=== PATIENT | female | born 1960 | race Caucasian/White ===

== ENCOUNTER 2018-12-30 17:44 | Emergency (ER) | payer SELFPAY ==
[~2018-12-30] VITALS: Ht 152.4 cm; Wt 76.4 kg
[2018-12-30] MEDS ORDERED: PENI500T2 PO (19:42)
[2018-12-30] MEDS ORDERED: HYDROcodone/acetaminophen 10/325mg tab PO ONE (19:50)
[2018-12-30 19:54] VITALS: BP 131/80
== END 2018-12-30 19:51 | disposition home or self-care (01) ==
LOC: ER 17:46
DX: K08.89 Other specified disorders of teeth and supporting structures (principal); H00.015 Hordeolum externum left lower eyelid; Z88.1 Allergy status to other antibiotic agents; Z79.2 Long term (current) use of antibiotics
CPT/HCPCS: 99283

== ENCOUNTER 2019-02-08 09:32 | Emergency (ER) | payer SELFPAY ==
[~2019-02-08] VITALS: Ht 152.4 cm; Wt 72.4 kg
[2019-02-08 09:47] VITALS: BP 146/98
[2019-02-08] MEDS ORDERED: AMOX-580 PO (10:32)
[2019-02-08] MEDS ORDERED: IBUP-1984 PO (10:32)
[2019-02-08] MEDS ORDERED: HYDROcodone/acetaminophen 10/325mg tab PO ONE (10:35)
[2019-02-08] MEDS ORDERED: TRAM50TA2 PO (11:04)
[2019-02-08] MEDS ORDERED: NO HOME MEDS (18:04)
[2019-02-08] MEDS ORDERED: HYDR-4353 PO (20:14)
== END 2019-02-08 11:11 | disposition home or self-care (01) ==
LOC: ER 09:33
DX: K04.7 Periapical abscess without sinus (principal); K05.319 Chronic periodontitis, localized, unspecified severity; F17.200 Nicotine dependence, unspecified, uncomplicated; Z88.1 Allergy status to other antibiotic agents; Z79.899 Other long term (current) drug therapy
CPT/HCPCS: 41800; 99283

== ENCOUNTER 2019-02-08 16:36 | Emergency (ER) | payer SELFPAY ==
[~2019-02-08] VITALS: Ht 152.4 cm; Wt 70.8 kg
[~2019-02-08 16:36] MED LIST: AMOX-580 PO; IBUP-1984 PO; TRAM50TA2 PO
[2019-02-08] MEDS ORDERED: ondansetron/PF 4mg/2ml inj IV ONE (17:20)
[2019-02-08] MEDS ORDERED: normal saline 1000ML IV soln IVB ONE (17:20)
[2019-02-08] MEDS ORDERED: LORazepam 2 mg/ml vial IV ONE (17:20)
[2019-02-08] MEDS ORDERED: morphine 4 MG/ML inj SYRINge IV ONE (17:20)
[2019-02-08] MEDS ORDERED: piperacillin/tazo 4.5gm/100ml 100 ML IV ONE (17:30)
[2019-02-08 17:38] LABS: BASOPHILS # (AUTO) 0.1 X10'3 (0-0.2); BASOPHILS % (AUTO) 0.6 % (0-1); EOSINOPHILS # (AUTO) 0.1 X10'3 (0-0.9); EOSINOPHILS % (AUTO) 0.6 % (0-6); HEMATOCRIT 41.8 % (35.0-45.0); HEMOGLOBIN 14.4 g/dl (12.0-16.0); LYMPHOCYTES # (AUTO) 2.5 X10'3 (1.1-4.8); LYMPHOCYTES % (AUTO) 15.2 % (21-51); MEAN CORPUSCULAR HEMOGLOBIN 30.7 PG (27.0-31.0); MEAN CORPUSCULAR HGB CONC 34.4 g/dL (33.0-36.5); MEAN CORPUSCULAR VOLUME 89.3 FL (78-98); MEAN PLATELET VOLUME 7.8 FL (7.4-10.4); MONOCYTES # (AUTO) 1.4 X10'3 (0-0.9); MONOCYTES % (AUTO) 8.5 % (2-12); NEUTROPHILS # (AUTO) 12.4 X10'3 (1.8-7.7); NEUTROPHILS % (AUTO) 75.1 % (42-75); PLATELET COUNT 338 X10'3 (140-440); RED BLOOD COUNT 4.68 X10'6 (4.20-5.60); RED CELL DISTRIBUTION WIDTH 12.7 % (11.5-14.5); WHITE BLOOD COUNT 16.6 X10'3 (4.5-11.0)
[2019-02-08] MEDS ORDERED: iohexol 300mg/ml 100ml inj. ONE (17:48)
[2019-02-08 17:55] LABS: ALANINE AMINOTRANSFERASE 18 U/L (12-78); ALBUMIN 3.6 G/DL (3.4-5.0); ALBUMIN/GLOBULIN RATIO 0.9 (1.1-1.5); ALKALINE PHOSPHATASE 84 IU/L (46-116); ANION GAP 10 (8-16); ASPARTATE AMINO TRANSFERASE 11 U/L (10-37); BILIRUBIN,TOTAL 0.5 MG/DL (0.1-1.0); BLOOD UREA NITROGEN 8 MG/DL (7-18); BUN/CREATININE RATIO 15.7 (6.6-38.0); CALCIUM 8.8 MG/DL (8.5-10.1); CHLORIDE 106 MMOL/L (99-107); CREATININE 0.51 MG/DL (0.40-0.90); GLUCOSE 97 MG/DL (70-104); POTASSIUM 3.3 MMOL/L (3.5-5.1); SODIUM 140 MMOL/L (135-145); TOTAL CARBON DIOXIDE 24.2 MMOL/L (24-32); TOTAL PROTEIN 7.8 G/DL (6.4-8.2); eGFR > 90 ML/MIN
[2019-02-08] MEDS ORDERED: NO HOME MEDS (18:04)
[2019-02-08 18:10] VITALS: BP 135/88
--- NOTE | 2019-02-08 18:14 | NUR ---
PT TAKEN TO CT VIA W/C BY TECH.
--- NOTE | 2019-02-08 19:54 | NUR ---
Daughter at bedside Sharonda [phone].
[2019-02-08] MEDS ORDERED: HYDR-4353 PO (20:14)
== END 2019-02-08 20:45 | disposition home or self-care (01) ==
LOC: ER 16:37
DX: K12.2 Cellulitis and abscess of mouth (principal); F17.200 Nicotine dependence, unspecified, uncomplicated; R79.1 Abnormal coagulation profile; Z88.1 Allergy status to other antibiotic agents; Z79.899 Other long term (current) drug therapy
CPT/HCPCS: 36415; 70491; 80053; 85025; 85610; 96365; 96366; 96375; 99285; J2270; J2405; J2543; J7030; Q9967

== ENCOUNTER 2019-02-16 23:52 | Emergency (ER) | payer OTHER ==
[~2019-02-16] VITALS: Ht 152.4 cm; Wt 76.4 kg
[~2019-02-16 23:52] MED LIST changes: +NO HOME MEDS
[2019-02-16 23:57] VITALS: BP 123/79
--- NOTE | 2019-02-17 00:08 | NUR ---
PT IS 58 YO FEMALE C/O DOG BITE TO LEFT HAND APPROX 2330 WHILE WORKING [employer]IVATE [employer]ITY, DOG'S SHOT ARE UP TO DATE, NO BLEEDING TO HAND, PAIN IS 6/10, WAITING TO BE EVALUATED BY PROVIDER
[2019-02-17] MEDS ORDERED: AMOX-580 PO (01:15)
[2019-02-17] MEDS ORDERED: ketorolac trometh inj. 60 MG/2 ML VIAL IM ONE (01:25)
[2019-02-17] MEDS ORDERED: TETanus/Pertussis (Acell)/Diphther VAC/PF (Tdap-Adult) 0.5ml syringe IM ONE (01:25)
[2019-02-17] MEDS ORDERED: amox tr/potassium clavulanate 875/125mg TAB PO ONE (01:25)
[2019-02-17] MEDS ORDERED: bacitracin 15gm ointment TP ONE (01:25)
[2019-02-17] MEDS ORDERED: HYDROcodone/acetaminophen 5mg/325mg tablet PO ONE (01:45)
== END 2019-02-17 02:25 | disposition home or self-care (01) ==
LOC: ER 23:53
DX: S61.032A Puncture wound without foreign body of left thumb without damage to nail, initial encounter (principal); Z88.1 Allergy status to other antibiotic agents; Z79.899 Other long term (current) drug therapy; W54.0XXA Bitten by dog, initial encounter; Y93.89 Activity, other specified; Y92.89 Other specified places as the place of occurrence of the external cause; Y99.8 Other external cause status
CPT/HCPCS: 73130; 90471; 90715; 96372; 99284; J1885

== ENCOUNTER 2019-02-21 05:07 | Emergency (ER) | payer OTHER ==
[~2019-02-21] VITALS: Ht 152.4 cm; Wt 76.4 kg
[2019-02-21 05:11] VITALS: BP 149/93
== END 2019-02-21 05:30 | disposition home or self-care (01) ==
LOC: ER 05:08
DX: S61.452D Open bite of left hand, subsequent encounter (principal); Z88.1 Allergy status to other antibiotic agents; Z79.2 Long term (current) use of antibiotics; Z79.899 Other long term (current) drug therapy; W54.0XXD Bitten by dog, subsequent encounter
CPT/HCPCS: 99281

== ENCOUNTER 2020-01-28 19:35 | Emergency (ER) | payer SELFPAY ==
[~2020-01-28] VITALS: Ht 152.4 cm; Wt 75.0 kg
[~2020-01-28 19:35] MED LIST changes: -AMOX-580 PO; -IBUP-1984 PO; -TRAM50TA2 PO
[2020-01-28 19:38] VITALS: BP 132/85
[2020-01-28] MEDS ORDERED: CEPH500C5 PO (20:07)
[2020-01-28] MEDS ORDERED: SULF1TAB49 PO (20:07)
[2020-01-28] MEDS ORDERED: LACT1CAP65 PO (20:07)
== END 2020-01-28 20:15 | disposition home or self-care (01) ==
LOC: ER 19:36
DX: L02.31 Cutaneous abscess of buttock (principal); F17.200 Nicotine dependence, unspecified, uncomplicated; Z88.1 Allergy status to other antibiotic agents; Z79.899 Other long term (current) drug therapy
CPT/HCPCS: 99283

== ENCOUNTER 2020-10-29 09:34 | Emergency (ER) | payer OTHER ==
[~2020-10-29] VITALS: Ht 152.4 cm; Wt 72.7 kg
[~2020-10-29 09:34] MED LIST changes: +LACT1CAP65 PO
[2020-10-29] MEDS ORDERED: AMOX-422 PO (10:18)
[2020-10-29] MEDS ORDERED: ALBU6.7H9 INH (10:18)
[2020-10-29] MEDS ORDERED: PRED20TA PO (10:18)
[2020-10-29 10:31] VITALS: BP 125/98
== END 2020-10-29 11:32 | disposition home or self-care (01) ==
LOC: ER 09:35
DX: J20.9 Acute bronchitis, unspecified (principal); Z72.0 Tobacco use; Z88.1 Allergy status to other antibiotic agents; Z79.899 Other long term (current) drug therapy
CPT/HCPCS: 71046; 99283

== ENCOUNTER 2022-10-13 06:45 | Emergency (ER) | payer SELFPAY ==
[~2022-10-13] VITALS: Ht 154.9 cm; Wt 72.7 kg
[~2022-10-13 06:45] MED LIST changes: +ALBU6.7H14 INH
[2022-10-13 06:52] VITALS: BP 185/89
[2022-10-13] MEDS ORDERED: acetaminophen 325mg tablet PO ONE (07:25)
[2022-10-13] MEDS ORDERED: ketorolac trometh inj. 60 MG/2 ML VIAL IM ONE (07:25)
[2022-10-13] MEDS ORDERED: HYDR-3965 PO (07:52)
[2022-10-13] MEDS ORDERED: LIDO700A32 TOP (07:52)
== END 2022-10-13 08:19 | disposition home or self-care (01) ==
LOC: ER 06:46
DX: R07.81 Pleurodynia (principal); Z91.041 Radiographic dye allergy status
CPT/HCPCS: 71045; 96372; 99284; J1885